=== PATIENT | female | born 1985 | race Hispanic/Latino ===

== ENCOUNTER → 2025-02-13 | Outpatient (CLI) | payer OTHER ==
--- NOTE | 2025-02-16 09:36 | HMCIMG ---
Exam Type: MAMMO SCREENING BILATERAL Clinical Information: BASELINE Comparison: January 25, 2024 Technique: Mammogram with CAD was performed with CC and MLO projections. CAD shows no worrisome regions. FINDINGS: The breasts are heterogeneously dense, which may obscure small masses. No dominant mass or suspicious microcalcification identified. There is no nipple retraction or skin thickening. Benign-appearing calcifications are seen. CAD shows no worrisome regions. IMPRESSION: 1. No mammographic signs of malignancy. 2. Routine follow-up recommended. CATEGORY 2: BENIGN FINDINGS Note: A negative x-ray should not delay biopsy if a dominant or clinically suspicious mass is present, since 8-10% of cancers are not identified by mammography. Dense breasts may obscure an underlying neoplasm.
== END | disposition home or self-care (01) ==
LOC: RAH 13:09
PROVIDERS: ATTEND Internal Medicine
DX: Z12.31 Encounter for screening mammogram for malignant neoplasm of breast (principal)
CPT/HCPCS: 77067

== ENCOUNTER → 2025-05-17 | Outpatient (CLI) | payer OTHER ==
--- NOTE | 2025-05-17 14:58 | HMCIMG ---
Exam: LEFT SHOULDER MRI WITHOUT IV CONTRAST. HISTORY:Shoulder pain. TECHNIQUE: Axial, coronal, and sagittal images of the shoulder were obtained. COMPARISON:None. FINDINGS: BONE MARROW:No fracture or avascular necrosis. ACROMIOCLAVICULAR JOINT:Mild osteoarthritis. BURSITIS:Mild subacromial bursitis. ROTATOR CUFF TENDONS:Supraspinatus and infraspinatus tendinosis with hypointense signal compatible with hydroxyapatite deposition, measuring up to 1.4 cm. No rotator cuff tear. BICEPS:The biceps is normally situated at the bicipital santana without subluxation or dislocation. No significant tendinosis, tenosynovitis, or tear. GLENOHUMERAL JOINT:No focal cartilage lesion. No joint effusion or intra-articular bodies. LABRAL LIGAMENTOUS COMPLEX:Labrum is intact without pathology. ROTATOR INTERVAL:Unremarkable. CORACOACROMIAL AND CORACOCLAVICULAR LIGAMENTS:Intact. No visualized tears. MUSCLES:Normal signal characteristics and bulk without edema or atrophy. QUADRILATERAL SPACE:Normal without masses. IMPRESSION: Calcific tendinitis of the supraspinatus and infraspinatus tendons. No rotator cuff tear. Mild subacromial bursitis. Mild acromioclavicular joint osteoarthritis. /[place]
== END | disposition home or self-care (01) ==
LOC: RAH 12:59
PROVIDERS: ATTEND Student in an Organized Health Care Education/Training Program
DX: M19.012 Primary osteoarthritis, left shoulder (principal); M75.32 Calcific tendinitis of left shoulder; M75.52 Bursitis of left shoulder; M25.512 Pain in left shoulder
CPT/HCPCS: 73221